=== PATIENT | female | born 1945 | race Caucasian/White ===

== ENCOUNTER 2018-04-13 16:53 | Emergency (ER) | payer OTHER ==
[~2018-04-13] VITALS: Ht 162.6 cm; Wt 76.2 kg
[~2018-04-13 16:53] MED LIST: ACIDOPHILUS PROB1 MG PO; ALEVE220 M2 PO; ALLEGRA ALLERG180 MG PO; ALLEGRA180 MG PO; AMITRIPTYLINE; ASPIRIN81 M2 PO; ATIVAN0.5 MG PO; BYSTOLIC10 MG PO; CENTRUM SILV1 TABLET PO; DEPAKOTE500 MG PO; DETROL LA4 MG PO; DILAUDID2 MG PO; DIOVAN160 MG PO; DIOVAN320 MG PO; DOLACET 5/5001 EACH PO; DURAGESIC50 MCG TD; ERYTHROMYCIN O3.5 GM BOTH EYES; FENTANYL1 EAC1 TD; FLAGYL500 MG PO; FLONASE16 G1 BOTH NARES; FORTAMET500 M1 PO; GLUCOPHAGE500 MG PO; Glucophage XR,Fortam PO; HYDRALAZINE HC100 MG PO; HYDRALAZINE HCL50 MG PO; HYDROCODON-ACE1 EAC8 PO; HYDROCODON-ACE1 EACH PO; HYDROMORPHONE HC2 MG PO; LAMICTAL100 MG PO; LASIX40 MG PO; LEXAPRO10 MG PO; LONITEN2.5 MG PO; LORAZEPAM0.5 MG PO; MIRAPEX1 MG PO; Micro-K,Klor-Con PO; NORVASC5 MG PO; NUVIGIL150 MG PO; PANTOPRAZOLE SO40 MG PO; PROVIGIL200 MG PO; SYSTANE 0.3-0.1 EACH BOTH EYES; SYSTANE 0.300 DROP/1 BOTH EYES; VITAMIN D2000 INTUN PO; VITAMIN D250000 UNIT PO; ZYRTEC10 M2 PO; diovan
[2018-04-13 19:20] LABS: BASOPHIL (%) 0.3 % (0-1); EOSINOPHIL (%) 1.9 % (0-5); EOSINOPHIL COUNT 0.1 K/uL (0-0.3); HEMATOCRIT 36.5 % (36.0-46.0); HEMOGLOBIN 11.8 G/DL (11.9-15.5); IMMATURE GRANULOCYTE (%) 0.3 % (0.0-0.7); LYMPHOCYTE COUNT 1.5 K/uL (1.0-2.8); MCH 29.6 PG (29.0-34.0); MCHC 32.3 G/DL (30.0-36.0); MCV 91.7 FL (83-99); MONOCYTE (%) 8.8 % (3-12); MONOCYTE COUNT 0.5 K/uL (0-0.8); NEUTROPHIL (%) 63.7 % (45-76); NEUTROPHIL COUNT 3.8 K/uL (1.8-6.4); PLATELET COUNT 136 K/uL (156-360); RBC DIS.WIDTH-CV 13.8 % (11.8-14.6); RBC DIS.WIDTH-SD 47.1 % (39-53); RED BLOOD COUNT 3.98 M/uL (3.80-5.20); WHITE BLOOD COUNT 5.9 K/uL (4.1-10.2)
[2018-04-13 19:21] LABS: ALBUMIN 3.4 g/dL (3.2-4.8); CHLORIDE 114 mEq/L (99-109); POTASSIUM 4.5 mEq/L (3.7-5.4); SODIUM 145 mEq/L (136-147)
[2018-04-13 19:23] LABS: GLUCOSE 95 mg/dL (70-99); TOTAL PROTEIN 5.4 g/dL (6.4-8.3)
[2018-04-13 19:25] LABS: TOTAL BILIRUBIN 0.8 mg/dL (0.0-1.0)
[2018-04-13 19:27] LABS: ALKALINE PHOSPHATASE 95 IU/L (3-129); CREATININE 0.9 mg/dL (0.6-1.3); GFR ESTIMATE (CALCULATED) > 59 mL/min/
[2018-04-13 19:28] LABS: UREA NITROGEN (BUN) 18 mg/dL (9-23)
[2018-04-13 19:29] LABS: AST (GOT) 30 IU/L (2-34)
[2018-04-13 19:30] LABS: ALT (GPT) 8 IU/L (3-49)
[2018-04-13 19:33] LABS: TROP-I INTERPRETATION NEGATIVE; TROPONIN-I < 0.01 ng/mL (0.0-0.30)
[2018-04-13 19:51] LABS: APPEARANCE CLOUDY ((CLEAR)); BILIRUBIN SMALL; BLOOD NEGATIVE; COLOR AMBER ((YELLOW)); GLUCOSE (STRIP) NEGATIVE; KETONES NEGATIVE; LEUKOCYTES LARGE; NITRITE NEGATIVE; PROTEIN (STRIP) 100; SPECIFIC GRAVITY 1.025 (1.000-1.030)
[2018-04-13 19:58] LABS: BACTERIA NONE SEEN /HPF; EPITHELIAL CELLS 2+ /HPF; HYALINE CASTS TNTC /LPF; MUCUS 1+ /LPF; UCUL ADDED? YES; WHITE BLOOD CELLS 15-20 /HPF (0-5)
[2018-04-13] MEDS ORDERED: MACROBID100 MG PO (21:26)
[2018-04-13 22:14] VITALS: BP 107/64
== END 2018-04-13 22:13 | disposition home or self-care (01) ==
LOC: EME 16:53
PROVIDERS: Emergency Medicine
DX: I95.2 Hypotension due to drugs (principal); N39.0 Urinary tract infection, site not specified; R42 Dizziness and giddiness; R53.1 Weakness; I10 Essential (primary) hypertension; Z86.73 Personal history of transient ischemic attack (TIA), and cerebral infarction without residual deficits; Z79.82 Long term (current) use of aspirin; Z98.1 Arthrodesis status
CPT/HCPCS: 71045; 80053; 81003; 83605; 84484; 85025; 87040; 87086; 93005